=== PATIENT | male | born 1975 | race Caucasian/White ===

== ENCOUNTER 2020-06-24 20:26 | Emergency (ER) | payer OTHER ==
[2020-06-24 22:49] LABS: RED BLOOD COUNT 4.69 M/UL (4.20-5.50); WHITE BLOOD COUNT 8.6 K/UL (4.5-11.0)
[2020-06-24 23:09] LABS: BUN/CREATININE RATIO 9 (0-10)
[2020-06-25 02:31] LABS: BUN/CREATININE RATIO 10 (0-10)
[2020-06-25] MEDS ORDERED: KLOR-CON20 MEQ PO (03:10)
== END 2020-06-25 03:14 | disposition home or self-care (01) ==
LOC: ER1 20:26
PROVIDERS: Student in an Organized Health Care Education/Training Program
DX: E87.6 Hypokalemia (principal); K52.9 Noninfective gastroenteritis and colitis, unspecified; I10 Essential (primary) hypertension; I25.10 Atherosclerotic heart disease of native coronary artery without angina pectoris; F17.210 Nicotine dependence, cigarettes, uncomplicated; Z79.899 Other long term (current) drug therapy
CPT/HCPCS: 80053; 81001; 82550; 82553; 83605; 83690; 83735; 83874; 84100; 84484; 85025; 93005; 96365; 96366; 96375; 99285; G0480; J2405; J3475; J3480; J7070; J7120; Q9967

== ENCOUNTER 2020-10-16 21:16 | Emergency (ER) | payer OTHER ==
[~2020-10-16 21:16] MED LIST: KLOR-CON20 MEQ PO
[2020-10-16 23:18] LABS: HEMOGLOBIN 17.9 gm/dl (14.0-17.5); RED BLOOD COUNT 5.25 M/UL (4.20-5.50)
[2020-10-17 00:12] LABS: BUN/CREATININE RATIO 18 (0-10)
== END 2020-10-17 04:20 | disposition short-term general hospital (02) ==
LOC: ER1 21:16
PROVIDERS: Physician Assistant
DX: U07.1 COVID-19 (principal); E87.6 Hypokalemia; I25.2 Old myocardial infarction; I10 Essential (primary) hypertension; Z79.01 Long term (current) use of anticoagulants; Z79.899 Other long term (current) drug therapy
CPT/HCPCS: 71045; 73590; 80053; 82550; 82553; 83605; 83690; 83735; 83874; 84484; 85025; 85379; 85610; 85652; 85730; 86140; 93005; 93926; 93971; 96365; 96375; 96376; 99285; J1170; J1644; J2270; J2405; J3480; Q9967

== ENCOUNTER 2020-12-05 16:32 | Inpatient (IN) | payer OTHER ==
[~2020-12-05] VITALS: Ht 175.3 cm; Wt 99.8 kg
[2020-12-05 17:28] LABS: RED BLOOD COUNT 4.23 M/UL (4.20-5.50); WHITE BLOOD COUNT 16.7 K/UL (4.5-11.0)
[2020-12-05 17:51] LABS: BUN/CREATININE RATIO 15 (0-10)
[2020-12-05] MEDS ORDERED: GABAPENTIN300 MG PO (22:27)
[2020-12-05] MEDS ORDERED: AMLODIPINE BESY10 MG PO (22:28)
[2020-12-05] MEDS ORDERED: TIZANIDINE HCL4 MG PO (22:28)
[2020-12-05] MEDS ORDERED: CLOPIDOGREL75 MG PO (22:29)
[2020-12-05] MEDS ORDERED: METOPROLOL TAR100 MG PO (22:29)
[2020-12-05] MEDS ORDERED: POTASSIUM CHLO20 ME2 PO (22:30)
[2020-12-05] MEDS ORDERED: ROBAXIN 750 MG750 MG GT (22:30)
[2020-12-05] MEDS ORDERED: HYDROCODON-ACE1 EAC6 PO (22:31)
[2020-12-05] MEDS ORDERED: NORTRIPTYLINE H25 MG PO (22:32)
[2020-12-06 04:56] LABS: HEMOGLOBIN 13.5 gm/dl (14.0-17.5); RED BLOOD COUNT 4.11 M/UL (4.20-5.50); WHITE BLOOD COUNT 12.8 K/UL (4.5-11.0)
[2020-12-06 05:14] LABS: BUN/CREATININE RATIO 15 (0-10)
--- NOTE | 2020-12-06 16:42 | NUR ---
NICKIE WENT OFF FLOOR IN WHEEL CHAIR WITH FAMILY MEMBER. IT WAS EXPLAINED TO MARY ANNEMaggieELEANOR THIS WAS DANGEROUS AND STAFF NOR THE HOSPITAL WOULD BE RESPONSIBLE IF SOMETHING HAPPENED TO THE PATIENT WHILE HE AND HIS FAMILY MEMBER WERE OFF THE FLOOR.
[2020-12-07 06:30] LABS: HEMOGLOBIN 12.5 gm/dl (14.0-17.5); RED BLOOD COUNT 3.87 M/UL (4.20-5.50)
[2020-12-08 06:47] LABS: HEMOGLOBIN 12.1 gm/dl (14.0-17.5); RED BLOOD COUNT 3.72 M/UL (4.20-5.50); WHITE BLOOD COUNT 8.4 K/UL (4.5-11.0)
[2020-12-08 07:12] LABS: BUN/CREATININE RATIO 22 (0-10)
[2020-12-09 06:18] LABS: HEMOGLOBIN 12.5 gm/dl (14.0-17.5); RED BLOOD COUNT 3.92 M/UL (4.20-5.50); WHITE BLOOD COUNT 7.1 K/UL (4.5-11.0)
[2020-12-09 06:50] LABS: BUN/CREATININE RATIO 31 (0-10)
[2020-12-10 08:05] LABS: HEMOGLOBIN 12.4 gm/dl (14.0-17.5); RED BLOOD COUNT 3.76 M/UL (4.20-5.50); WHITE BLOOD COUNT 6.7 K/UL (4.5-11.0)
[2020-12-10 08:22] LABS: BUN/CREATININE RATIO 25 (0-10)
[2020-12-11 07:00] LABS: HEMOGLOBIN 12.5 gm/dl (14.0-17.5); RED BLOOD COUNT 3.81 M/UL (4.20-5.50); WHITE BLOOD COUNT 7.4 K/UL (4.5-11.0)
[2020-12-11 09:48] LABS: BUN/CREATININE RATIO 15 (0-10)
[2020-12-12 07:15] LABS: HEMOGLOBIN 12.1 gm/dl (14.0-17.5); RED BLOOD COUNT 3.71 M/UL (4.20-5.50); WHITE BLOOD COUNT 8.7 K/UL (4.5-11.0)
[2020-12-12 07:58] LABS: BUN/CREATININE RATIO 12 (0-10)
--- NOTE | 2020-12-12 20:00 | NUR ---
PATIENT ORDER GIVEN ON 12/10/20 FOR INTERMITTENT SUCTION ON WOUND VAC AT 125 WOUND VAC APPLIED AT 1830 THIS SHIFT PER CBISHOP RN
[2020-12-13 07:35] LABS: HEMOGLOBIN 11.7 gm/dl (14.0-17.5); RED BLOOD COUNT 3.66 M/UL (4.20-5.50); WHITE BLOOD COUNT 7.5 K/UL (4.5-11.0)
[2020-12-13 07:56] LABS: BUN/CREATININE RATIO 12 (0-10)
[2020-12-13] MEDS ORDERED: CLEOCIN HCL300 MG PO (12:55)
== END 2020-12-13 19:05 | disposition home or self-care (01) | DRG 862 ==
LOC: ER1 16:32 → CDU 18:26 → MED SURG 4 18:51
PROVIDERS: Internal Medicine; Physician Assistant; ADMIT Internal Medicine
PROC: B24BZZZ Ultrasonography of Heart with Aorta (ICD-10-PCS; principal; 2020-12-06)
DX: T81.42XA Infection following a procedure, deep incisional surgical site, initial encounter (principal); A41.02 Sepsis due to Methicillin resistant Staphylococcus aureus; Z20.822 Contact with and (suspected) exposure to COVID-19; R65.20 Severe sepsis without septic shock; I16.1 Hypertensive emergency; L03.115 Cellulitis of right lower limb; N17.9 Acute kidney failure, unspecified; F11.20 Opioid dependence, uncomplicated; M79.A21 Nontraumatic compartment syndrome of right lower extremity; E87.2 Acidosis; Z68.41 Body mass index [BMI] 40.0-44.9, adult; E66.9 Obesity, unspecified; Y83.8 Other surgical procedures as the cause of abnormal reaction of the patient, or of later complication, without mention of misadventure at the time of the procedure; I16.0 Hypertensive urgency; G89.29 Other chronic pain; E87.6 Hypokalemia; I25.10 Atherosclerotic heart disease of native coronary artery without angina pectoris; Z95.5 Presence of coronary angioplasty implant and graft; Z86.718 Personal history of other venous thrombosis and embolism; Z79.01 Long term (current) use of anticoagulants; Z80.42 Family history of malignant neoplasm of prostate; Z82.49 Family history of ischemic heart disease and other diseases of the circulatory system; Z56.0 Unemployment, unspecified
CPT/HCPCS: ECHO; 36415; 71045; 80048; 80053; 80061; 80202; 80307; 81001; 82550; 82553; 83036; 83605; 83690; 83735; 83874; 83880; 84132; 84484; 85025; 85027; 85610; 85730; 86140; 87040; 87070; 87077; 87186; 87205; 93005; 93306; 93970; 96374; 99285; J1335; J2270; J2405; J3370; J7030; J7050; J7070; U0002

== ENCOUNTER → 2020-12-21 | Outpatient (CLI) | payer OTHER ==
[~2020-12-21] MED LIST changes: +AMLODIPINE BESY10 MG PO; +CLEOCIN HCL300 MG PO; +CLOPIDOGREL75 MG PO; +GABAPENTIN300 MG PO; +HYDROCODON-ACE1 EAC6 PO; +METOPROLOL TAR100 MG PO; +NORTRIPTYLINE H25 MG PO; +POTASSIUM CHLO20 ME2 PO; +ROBAXIN 750 MG750 MG GT; +TIZANIDINE HCL4 MG PO
== END ==
LOC: WCC 07:47
DX: T81.89XA Other complications of procedures, not elsewhere classified, initial encounter (principal); F17.210 Nicotine dependence, cigarettes, uncomplicated; I10 Essential (primary) hypertension; G89.29 Other chronic pain; I25.10 Atherosclerotic heart disease of native coronary artery without angina pectoris; A49.02 Methicillin resistant Staphylococcus aureus infection, unspecified site; L03.115 Cellulitis of right lower limb; A41.02 Sepsis due to Methicillin resistant Staphylococcus aureus

== ENCOUNTER → 2021-01-19 | Outpatient (CLI) | payer OTHER | LOC: WCC 07:33 | DX: T81.89XA Other complications of procedures, not elsewhere classified, initial encounter (principal); I11.9 Hypertensive heart disease without heart failure; G89.29 Other chronic pain; I25.10 Atherosclerotic heart disease of native coronary artery without angina pectoris; A41.02 Sepsis due to Methicillin resistant Staphylococcus aureus; L03.115 Cellulitis of right lower limb; F17.210 Nicotine dependence, cigarettes, uncomplicated; Z79.899 Other long term (current) drug therapy ==

== ENCOUNTER 2021-03-07 15:47 | Emergency (ER) | payer OTHER ==
[~2021-03-07] VITALS: Ht 175.3 cm; Wt 108.9 kg
[2021-03-07 16:37] LABS: HEMOGLOBIN 15.9 gm/dl (14.0-17.5); RED BLOOD COUNT 4.65 M/UL (4.20-5.50); WHITE BLOOD COUNT 15.7 K/UL (4.5-11.0)
[2021-03-07 16:59] LABS: BUN/CREATININE RATIO 7 (0-10)
== END 2021-03-07 22:04 | disposition home or self-care (01) ==
LOC: ER1 15:47
PROVIDERS: Family Medicine
DX: R20.2 Paresthesia of skin (principal); G89.29 Other chronic pain; F11.20 Opioid dependence, uncomplicated; M79.605 Pain in left leg; Z20.822 Contact with and (suspected) exposure to COVID-19
CPT/HCPCS: 70450; 71045; 80048; 80307; 81001; 82550; 82553; 83605; 83735; 83874; 84484; 85025; 93971; 99284; J7030; U0002

== ENCOUNTER 2021-05-30 17:15 | Emergency (ER) | payer OTHER ==
[~2021-05-30 17:15] MED LIST changes: +ELIQUIS 5 MG TAB5 MG PO; +LEVOCETIRIZINE D5 MG PO; +NEURONTIN800 MG PO; +PROAIR HFA8.5 GM INH; +ZOFRAN 4 MG TAB4 MG PO
[2021-05-30 17:58] LABS: HEMOGLOBIN 15.6 gm/dl (14.0-17.5); RED BLOOD COUNT 4.39 M/UL (4.20-5.50); WHITE BLOOD COUNT 17.1 K/UL (4.5-11.0)
[2021-05-30 18:51] LABS: BUN/CREATININE RATIO 17 (0-10)
[2021-05-30 21:57] LABS: HEMOGLOBIN 15.5 gm/dl (14.0-17.5); RED BLOOD COUNT 4.31 M/UL (4.20-5.50); WHITE BLOOD COUNT 18.9 K/UL (4.5-11.0)
[2021-05-30 22:23] LABS: BUN/CREATININE RATIO 18 (0-10)
[2021-05-30] MEDS ORDERED: POTASSIUM CHLO20 ME1 PO (22:48)
== END 2021-05-31 00:09 | disposition home or self-care (01) ==
LOC: ER1 17:15
PROVIDERS: Emergency Medicine; Nurse Practitioner
DX: E87.6 Hypokalemia (principal); E83.42 Hypomagnesemia; I25.2 Old myocardial infarction; I10 Essential (primary) hypertension; F17.210 Nicotine dependence, cigarettes, uncomplicated; Z86.73 Personal history of transient ischemic attack (TIA), and cerebral infarction without residual deficits; Z86.718 Personal history of other venous thrombosis and embolism; Z95.5 Presence of coronary angioplasty implant and graft
CPT/HCPCS: 80053; 83690; 83735; 85025; 93005; 96374; 99283; J3475

== ENCOUNTER 2021-06-12 22:33 | Emergency (ER) | payer OTHER ==
[~2021-06-12 22:33] MED LIST changes: +POTASSIUM CHLO20 ME1 PO
[2021-06-13 02:27] LABS: HEMOGLOBIN 15.1 gm/dl (14.0-17.5); RED BLOOD COUNT 4.3 M/UL (4.20-5.50); WHITE BLOOD COUNT 11.5 K/UL (4.5-11.0)
[2021-06-13 03:03] LABS: BUN/CREATININE RATIO 16 (0-10)
== END 2021-06-13 09:10 | disposition short-term general hospital (02) ==
LOC: ER1 22:33
PROVIDERS: Student in an Organized Health Care Education/Training Program
DX: U07.1 COVID-19 (principal); I77.1 Stricture of artery; E87.6 Hypokalemia; I11.9 Hypertensive heart disease without heart failure; F17.210 Nicotine dependence, cigarettes, uncomplicated; Z86.73 Personal history of transient ischemic attack (TIA), and cerebral infarction without residual deficits; Z79.01 Long term (current) use of anticoagulants
CPT/HCPCS: 36415; 80053; 85025; 85610; 85730; 93926; 93971; 96374; 96375; 96376; 99285; J1170; J1644; J3010; U0002

== ENCOUNTER 2021-07-05 19:28 | Emergency (ER) | payer OTHER ==
[2021-07-05 20:22] LABS: HEMOGLOBIN 14.4 gm/dl (14.0-17.5); RED BLOOD COUNT 4.19 M/UL (4.20-5.50); WHITE BLOOD COUNT 20.7 K/UL (4.5-11.0)
[2021-07-05 21:01] LABS: BUN/CREATININE RATIO 26 (0-10)
[2021-07-06] MEDS ORDERED: PHENERGAN 25 MG25 M1 PO (03:12)
== END 2021-07-06 03:26 | disposition home or self-care (01) ==
LOC: ER1 19:28
PROVIDERS: Student in an Organized Health Care Education/Training Program
DX: E86.0 Dehydration (principal); R11.10 Vomiting, unspecified; I10 Essential (primary) hypertension; F17.200 Nicotine dependence, unspecified, uncomplicated
CPT/HCPCS: 71045; 80053; 82550; 82553; 83605; 84484; 85025; 87040; 96372; 96374; 96375; 96376; 99285; J2270; J2405; J2550; Q9967

== ENCOUNTER 2021-08-12 08:17 | Inpatient (IN) | payer OTHER ==
[~2021-08-12] VITALS: Ht 172.7 cm; Wt 83.6 kg
[~2021-08-12 08:17] MED LIST changes: +PHENERGAN 25 MG25 M1 PO
[2021-08-12 09:34] LABS: RED BLOOD COUNT 4.04 M/UL (4.20-5.50); WHITE BLOOD COUNT 20.9 K/UL (4.5-11.0)
[2021-08-12 09:49] LABS: HEMOGLOBIN 13.8 gm/dl (14.0-17.5)
[2021-08-12 09:52] LABS: BUN/CREATININE RATIO 11 (0-10)
[2021-08-12] MEDS ORDERED: CARVEDILOL25 MG PO (16:52)
[2021-08-12] MEDS ORDERED: NIFEDIPINE ER60 M1 PO (16:53)
[2021-08-12] MEDS ORDERED: PROMETHAZINE HC25 M1 PO (16:55)
[2021-08-13 06:28] LABS: RED BLOOD COUNT 3.84 M/UL (4.20-5.50)
[2021-08-13 06:29] LABS: WHITE BLOOD COUNT 12.4 K/UL (4.5-11.0)
[2021-08-13 06:47] LABS: BUN/CREATININE RATIO 10 (0-10)
[2021-08-14 05:55] LABS: HEMOGLOBIN 13.3 gm/dl (14.0-17.5); RED BLOOD COUNT 3.91 M/UL (4.20-5.50); WHITE BLOOD COUNT 9.5 K/UL (4.5-11.0)
[2021-08-14 06:13] LABS: BUN/CREATININE RATIO 12 (0-10)
[2021-08-15 07:32] LABS: BUN/CREATININE RATIO 10 (0-10)
--- NOTE | 2021-08-15 17:12 | NUR ---
REPORT GIVEN TO GERA SANCHEZ
[2021-08-16] MEDS ORDERED: INVANZ 1 GM VIAL1 GM IV (13:08)
[2021-08-16] MEDS ORDERED: ASPIRIN EC81 MG PO (13:08)
[2021-08-16] MEDS ORDERED: HYDRALAZINE HCL25 MG PO (13:08)
[2021-08-16] MEDS ORDERED: MAGNESIUM OXID400 M1 PO (13:14)
[2021-08-16] MEDS ORDERED: K-TAB ER20 MEQ PO (13:14)
[2021-08-16] MEDS ORDERED: LACTINEX TABLET1 EA PO (13:14)
[2021-08-16] MEDS ORDERED: DAPTOMYCIN IV (15:35)
[2021-08-16] MEDS ORDERED: AMBIEN5 MG PO (15:35)
[2021-08-16] MEDS ORDERED: PROMETHAZINE HC25 M1 PO (15:37)
== END 2021-08-16 17:00 | disposition home health service (06) | DRG 392 ==
LOC: ER1 08:17 → CDU 15:55 → MED SURG 4 15:55 → PROG CARE 19:06 → MED SURG 4 08-15 17:22
PROVIDERS: Physician Assistant; ADMIT Internal Medicine
DX: K52.9 Noninfective gastroenteritis and colitis, unspecified (principal); I16.0 Hypertensive urgency; Z20.822 Contact with and (suspected) exposure to COVID-19; E87.6 Hypokalemia; D53.9 Nutritional anemia, unspecified; I25.10 Atherosclerotic heart disease of native coronary artery without angina pectoris; Z95.5 Presence of coronary angioplasty implant and graft; Z89.511 Acquired absence of right leg below knee; Z86.718 Personal history of other venous thrombosis and embolism; Z79.01 Long term (current) use of anticoagulants; Z79.82 Long term (current) use of aspirin; Z86.14 Personal history of Methicillin resistant Staphylococcus aureus infection; Z72.89 Other problems related to lifestyle; Z82.49 Family history of ischemic heart disease and other diseases of the circulatory system; Z80.9 Family history of malignant neoplasm, unspecified; I25.2 Old myocardial infarction
CPT/HCPCS: 36415; 70450; 80048; 80053; 80202; 80307; 81001; 82550; 83690; 83735; 84132; 85025; 94640; 94760; 96374; 96375; 96376; 99285; J0360; J0878; J1170; J1335; J2060; J2270; J2405; J2543; J2550; J3370; J7070; Q9967

== ENCOUNTER 2021-09-05 09:45 | Inpatient (IN) | payer OTHER ==
[~2021-09-05] VITALS: Ht 175.3 cm; Wt 94.8 kg
[~2021-09-05 09:45] MED LIST changes: +AMBIEN5 MG PO; +ASPIRIN EC81 MG PO; +CARVEDILOL25 MG PO; +DAPTOMYCIN IV; +HYDRALAZINE HCL25 MG PO; +INVANZ 1 GM VIAL1 GM IV; +K-TAB ER20 MEQ PO; +LACTINEX TABLET1 EA PO; +MAGNESIUM OXID400 M1 PO; +NIFEDIPINE ER60 M1 PO; +PROMETHAZINE HC25 M1 PO
[2021-09-05 11:35] LABS: RED BLOOD COUNT 4.32 M/UL (4.20-5.50); WHITE BLOOD COUNT 15.9 K/UL (4.5-11.0)
[2021-09-05 11:39] LABS: HEMOGLOBIN 14.2 gm/dl (14.0-17.5)
[2021-09-05 13:30] LABS: BUN/CREATININE RATIO 25 (0-10)
[2021-09-05] MEDS ORDERED: AMLODIPINE BESY10 MG PO (15:28)
[2021-09-05] MEDS ORDERED: DULOXETINE HCL20 MG PO (15:28)
[2021-09-05] MEDS ORDERED: PHENERGAN 25 MG25 M1 PO (15:29)
[2021-09-05] MEDS ORDERED: FAMOTIDINE20 MG PO (15:29)
[2021-09-05] MEDS ORDERED: DOCUSATE SODIU100 MG PO (15:30)
[2021-09-05] MEDS ORDERED: TYLENOL EXTRA500 MG PO (15:30)
[2021-09-05] MEDS ORDERED: ATORVASTATIN CA80 MG PO (15:30)
[2021-09-06 05:40] LABS: HEMOGLOBIN 13.4 gm/dl (14.0-17.5); RED BLOOD COUNT 4.08 M/UL (4.20-5.50)
[2021-09-06 05:45] LABS: WHITE BLOOD COUNT 11.1 K/UL (4.5-11.0)
[2021-09-06 06:31] LABS: BUN/CREATININE RATIO 13 (0-10)
[2021-09-08 03:20] LABS: HEMOGLOBIN 10.6 gm/dl (14.0-17.5); RED BLOOD COUNT 3.29 M/UL (4.20-5.50); WHITE BLOOD COUNT 8.2 K/UL (4.5-11.0)
[2021-09-09 10:47] LABS: HEMOGLOBIN 10.2 gm/dl (14.0-17.5); RED BLOOD COUNT 3.19 M/UL (4.20-5.50)
[2021-09-09 10:56] LABS: WHITE BLOOD COUNT 6.1 K/UL (4.5-11.0)
[2021-09-09] MEDS ORDERED: KLOR-CON M2020 MEQ PO (18:46)
[2021-09-09] MEDS ORDERED: ZOLPIDEM TARTRAT5 MG PO (18:46)
--- NOTE | 2021-09-09 22:24 | NUR ---
PATIENT DISCHARGED AT 2145. ALL EDUCATION WAS PERFORMED AND APPROPRIATE DOCUMENTATION WAS DONE. IV ACCESS WAS REMOVED FROM RIGHT AC. PICC LINE IN LEFT UPPER ARM WAS LEFT IN PLACE PATIENT WAS CONTINUING ANTIBIOTIC TREATMENT AT HOME. PATIENT WAS STABLE AT TIME OF DISCHARGE AND TAKEN OUT TO VEHICLE VIA WHEELCHAIR. PATIENT WAS ACCOMPANIED BY FAMILY MEMBER AND PRIMARY NURSE. PATIENT HAD NO FURTHER QUESTIONS.
== END 2021-09-09 21:55 | disposition home or self-care (01) | DRG 565 ==
LOC: ER1 09:45 → CDU 15:08 → PROG CARE 15:58
PROVIDERS: Internal Medicine; Physician Assistant; Physician Assistant Medical; ADMIT Internal Medicine
DX: T87.43 Infection of amputation stump, right lower extremity (principal); N17.9 Acute kidney failure, unspecified; I16.0 Hypertensive urgency; I25.10 Atherosclerotic heart disease of native coronary artery without angina pectoris; I10 Essential (primary) hypertension; F17.200 Nicotine dependence, unspecified, uncomplicated; E87.6 Hypokalemia; G47.00 Insomnia, unspecified; Z95.1 Presence of aortocoronary bypass graft; Z89.511 Acquired absence of right leg below knee; Z98.890 Other specified postprocedural states; Z86.718 Personal history of other venous thrombosis and embolism; Z82.49 Family history of ischemic heart disease and other diseases of the circulatory system; Z80.8 Family history of malignant neoplasm of other organs or systems; Z79.899 Other long term (current) drug therapy; Z71.6 Tobacco abuse counseling
CPT/HCPCS: 36415; 71045; 73564; 73700; 80048; 80053; 80202; 82550; 82553; 83605; 83735; 84132; 84484; 85025; 85027; 85652; 86140; 87040; 93005; 93970; 96374; 96375; 96376; 99285; J1170; J1650; J2185; J2270; J2543; J2550; J3370; J3480; J7070; U0002

== ENCOUNTER 2021-09-14 20:07 | Observation (INO) | payer OTHER ==
[~2021-09-14] VITALS: Ht 175.3 cm; Wt 83.9 kg
[~2021-09-14 20:07] MED LIST changes: +ATORVASTATIN CA80 MG PO; +DOCUSATE SODIU100 MG PO; +DULOXETINE HCL20 MG PO; +FAMOTIDINE20 MG PO; +KLOR-CON M2020 MEQ PO; +TYLENOL EXTRA500 MG PO; +ZOLPIDEM TARTRAT5 MG PO
[2021-09-14 22:01] LABS: RED BLOOD COUNT 4.1 M/UL (4.20-5.50); WHITE BLOOD COUNT 16.5 K/UL (4.5-11.0)
[2021-09-14 22:12] LABS: HEMOGLOBIN 13.4 gm/dl (14.0-17.5)
[2021-09-15 14:23] LABS: BUN/CREATININE RATIO 16 (0-10)
[2021-09-16 07:48] LABS: HEMOGLOBIN 9.7 gm/dl (14.0-17.5); RED BLOOD COUNT 3.15 M/UL (4.20-5.50); WHITE BLOOD COUNT 8.2 K/UL (4.5-11.0)
[2021-09-16 08:03] LABS: BUN/CREATININE RATIO 17 (0-10)
== END 2021-09-16 12:11 | disposition home or self-care (01) ==
LOC: ER1 20:07 → CDU 09-15 01:01 → MED SURG 4 09-15 11:21
PROVIDERS: Internal Medicine; Physician Assistant; ADMIT Internal Medicine
DX: R07.89 Other chest pain (principal); N17.9 Acute kidney failure, unspecified; E87.6 Hypokalemia; I10 Essential (primary) hypertension; I25.10 Atherosclerotic heart disease of native coronary artery without angina pectoris; I82.401 Acute embolism and thrombosis of unspecified deep veins of right lower extremity; F17.210 Nicotine dependence, cigarettes, uncomplicated; G54.6 Phantom limb syndrome with pain; Z20.822 Contact with and (suspected) exposure to COVID-19; Z95.5 Presence of coronary angioplasty implant and graft; Z96.651 Presence of right artificial knee joint; Z79.01 Long term (current) use of anticoagulants; Z79.82 Long term (current) use of aspirin; Z79.899 Other long term (current) drug therapy
CPT/HCPCS: 0240U; 36415; 71045; 78452; 80048; 80053; 81001; 82550; 82553; 83735; 83880; 84132; 84484; 85025; 85027; 85379; 85610; 85730; 87040; 93005; 93017; 94760; 96372; 96374; 96375; 96376; 99285; A9502; G0378; J0360; J0696; J1650; J2270; J2405; J2785; Q9967

== ENCOUNTER 2021-09-25 20:31 | Emergency (ER) | payer OTHER ==
[2021-09-25 21:22] LABS: HEMOGLOBIN 14.7 gm/dl (14.0-17.5); RED BLOOD COUNT 4.45 M/UL (4.20-5.50); WHITE BLOOD COUNT 20.2 K/UL (4.5-11.0)
[2021-09-25 21:47] LABS: BUN/CREATININE RATIO 15 (0-10)
[2021-09-26 03:30] LABS: WHITE BLOOD COUNT 17.3 K/UL (4.5-11.0)
[2021-09-26 03:31] LABS: RED BLOOD COUNT 3.75 M/UL (4.20-5.50)
[2021-09-26 03:54] LABS: BUN/CREATININE RATIO 9 (0-10)
[2021-09-26] MEDS ORDERED: PERCOCET 5/325 T1 EA PO (07:07)
== END 2021-09-26 15:10 | disposition home or self-care (01) ==
LOC: ER1 20:31
PROVIDERS: Family Medicine
DX: M79.605 Pain in left leg (principal); I11.9 Hypertensive heart disease without heart failure; F17.200 Nicotine dependence, unspecified, uncomplicated; Z86.73 Personal history of transient ischemic attack (TIA), and cerebral infarction without residual deficits; Z20.822 Contact with and (suspected) exposure to COVID-19
CPT/HCPCS: 36415; 71045; 75635; 80053; 80307; 81001; 82550; 82553; 83605; 83690; 84484; 85025; 85610; 85730; 86140; 87040; 87086; 93005; 96365; 96366; 96368; 96375; 96376; 99284; J1644; J2270; J2405; J3370; J7030; Q9967; U0002

== ENCOUNTER 2021-10-06 01:48 | Emergency (ER) | payer OTHER ==
[~2021-10-06 01:48] MED LIST changes: +PERCOCET 5/325 T1 EA PO
[2021-10-06 02:35] LABS: HEMOGLOBIN 14.2 gm/dl (14.0-17.5); RED BLOOD COUNT 4.39 M/UL (4.20-5.50); WHITE BLOOD COUNT 19.1 K/UL (4.5-11.0)
[2021-10-06 02:51] LABS: BUN/CREATININE RATIO 15 (0-10)
[2021-10-06] MEDS ORDERED: VOLTAREN ARTHRI20 GM TP (05:32)
[2021-10-06] MEDS ORDERED: PHENERGAN 25 MG25 M1 PO (05:32)
== END 2021-10-06 07:09 | disposition home or self-care (01) ==
LOC: ER1 01:48
PROVIDERS: Physician Assistant Medical
DX: M79.661 Pain in right lower leg (principal); G89.29 Other chronic pain; I11.9 Hypertensive heart disease without heart failure; Z79.01 Long term (current) use of anticoagulants
CPT/HCPCS: 73590; 80053; 83605; 85025; 85652; 86140; 96361; 96374; 96375; 96376; 99284; J1170; J1885; J2270; J2405; J2550

== ENCOUNTER 2021-10-25 14:21 | Observation (INO) | payer OTHER ==
[~2021-10-25] VITALS: Ht 175.3 cm; Wt 83.9 kg
[~2021-10-25 14:21] MED LIST changes: +VOLTAREN ARTHRI20 GM TP
[2021-10-25 15:04] LABS: HEMOGLOBIN 15.3 gm/dl (14.0-17.5); RED BLOOD COUNT 4.69 M/UL (4.20-5.50); WHITE BLOOD COUNT 19.2 K/UL (4.5-11.0)
[2021-10-25 15:22] LABS: BUN/CREATININE RATIO 14 (0-10)
[2021-10-26 02:04] LABS: HEMOGLOBIN 12.7 gm/dl (14.0-17.5); RED BLOOD COUNT 3.97 M/UL (4.20-5.50); WHITE BLOOD COUNT 10.7 K/UL (4.5-11.0)
[2021-10-26 03:18] LABS: BUN/CREATININE RATIO 14 (0-10)
[2021-10-26] MEDS ORDERED: TIZANIDINE HCL4 MG PO (10:33)
[2021-10-26] MEDS ORDERED: ARTHRITIS PAIN150 GM TP (10:34)
[2021-10-26] MEDS ORDERED: ZOLPIDEM TARTRAT5 MG PO (10:37)
[2021-10-26] MEDS ORDERED: POTASSIUM CHLO20 ME2 PO (10:37)
[2021-10-26] MEDS ORDERED: ASPIRIN EC81 MG PO (10:40)
[2021-10-27] MEDS ORDERED: LISINOPRIL20 MG PO (09:25)
[2021-10-27] MEDS ORDERED: CARVEDILOL25 MG PO (09:25)
== END 2021-10-27 10:24 | disposition home or self-care (01) ==
LOC: ER1 14:21 → PROG CARE 18:51 → CDU 18:51 → PROG CARE 19:58
PROVIDERS: Emergency Medicine; ADMIT Internal Medicine Infectious Disease
DX: I16.0 Hypertensive urgency (principal); K52.9 Noninfective gastroenteritis and colitis, unspecified; D72.829 Elevated white blood cell count, unspecified; M79.661 Pain in right lower leg; I25.10 Atherosclerotic heart disease of native coronary artery without angina pectoris; J44.9 Chronic obstructive pulmonary disease, unspecified; F17.210 Nicotine dependence, cigarettes, uncomplicated; Z89.511 Acquired absence of right leg below knee; Z86.718 Personal history of other venous thrombosis and embolism; Z79.01 Long term (current) use of anticoagulants; Z79.82 Long term (current) use of aspirin; Z79.899 Other long term (current) drug therapy
CPT/HCPCS: 36415; 71045; 80053; 80307; 81001; 83605; 83735; 84100; 85025; 85610; 85730; 87040; 87086; 93005; 93926; 93971; 96365; 96366; 96367; 96375; 96376; 99285; G0378; J0360; J1170; J1644; J2405; J2550; J3480; Q9967

== ENCOUNTER 2021-10-31 11:32 | Inpatient (IN) | payer OTHER ==
[~2021-10-31] VITALS: Ht 175.3 cm; Wt 83.9 kg
[~2021-10-31 11:32] MED LIST changes: +ARTHRITIS PAIN150 GM TP; +LISINOPRIL20 MG PO
[2021-10-31 14:33] LABS: RED BLOOD COUNT 4.83 M/UL (4.20-5.50); WHITE BLOOD COUNT 16.9 K/UL (4.5-11.0)
[2021-10-31 14:44] LABS: HEMOGLOBIN 15.8 gm/dl (14.0-17.5)
[2021-10-31 14:57] LABS: BUN/CREATININE RATIO 24 (0-10)
[2021-11-01 04:44] LABS: HEMOGLOBIN 14.3 gm/dl (14.0-17.5); RED BLOOD COUNT 4.36 M/UL (4.20-5.50)
[2021-11-02 09:01] LABS: HEMOGLOBIN 13.1 gm/dl (14.0-17.5); RED BLOOD COUNT 4.23 M/UL (4.20-5.50); WHITE BLOOD COUNT 10.3 K/UL (4.5-11.0)
[2021-11-03 03:17] LABS: HEMOGLOBIN 11.9 gm/dl (14.0-17.5); RED BLOOD COUNT 3.71 M/UL (4.20-5.50); WHITE BLOOD COUNT 8.1 K/UL (4.5-11.0)
[2021-11-03 04:09] LABS: BUN/CREATININE RATIO 28 (0-10)
[2021-11-03] MEDS ORDERED: POLYETHYLENE GL17 GM PO (16:48)
[2021-11-03] MEDS ORDERED: LISINOPRIL10 MG PO (16:48)
[2021-11-03] MEDS ORDERED: NITROGLYCERIN0.4 MG SL (16:48)
[2021-11-03] MEDS ORDERED: ISOSORBIDE MONO30 MG PO (16:48)
== END 2021-11-03 18:00 | disposition home health service (06) | DRG 605 ==
LOC: ER1 11:32 → CDU 16:36 → M/S 16:36
PROVIDERS: Emergency Medicine; Internal Medicine; ADMIT Internal Medicine
PROC: B24BZZZ Ultrasonography of Heart with Aorta (ICD-10-PCS; principal; 2021-11-01)
DX: S80.01XA Contusion of right knee, initial encounter (principal); I10 Essential (primary) hypertension; W18.30XA Fall on same level, unspecified, initial encounter; I73.9 Peripheral vascular disease, unspecified; F17.210 Nicotine dependence, cigarettes, uncomplicated; I25.5 Ischemic cardiomyopathy; I16.0 Hypertensive urgency; I95.2 Hypotension due to drugs; T39.95XA Adverse effect of unspecified nonopioid analgesic, antipyretic and antirheumatic, initial encounter; Z86.718 Personal history of other venous thrombosis and embolism; Z79.01 Long term (current) use of anticoagulants; Z95.5 Presence of coronary angioplasty implant and graft; Z90.49 Acquired absence of other specified parts of digestive tract; Z89.511 Acquired absence of right leg below knee; Z82.49 Family history of ischemic heart disease and other diseases of the circulatory system; Z86.16 Personal history of COVID-19
CPT/HCPCS: ECHO; 36415; 71045; 73564; 80048; 80053; 80307; 81001; 82550; 82553; 83605; 83735; 84484; 85025; 85027; 87040; 87086; 93005; 93306; 96374; 96375; 96376; 97116-GP-CQ; 97161; 97165; 97530; 99285; C9113; J0360; J1170; J2185; J2270; J2405; J2543